=== PATIENT | female | born 1930 | race Caucasian/White ===

== ENCOUNTER 2017-05-18 11:07 | Outpatient (CLI) | payer MEDICARE, BC ==
[~2017-05-18 11:07] MED LIST: LEVO50TA PO
== END 2017-05-18 23:59 | disposition home or self-care (01) ==
LOC: RAD 11:07
DX: S82.401D Unspecified fracture of shaft of right fibula, subsequent encounter for closed fracture with routine healing (principal); M16.0 Bilateral primary osteoarthritis of hip; M19.012 Primary osteoarthritis, left shoulder; M85.88 Other specified disorders of bone density and structure, other site; M47.896 Other spondylosis, lumbar region; X58.XXXD Exposure to other specified factors, subsequent encounter
CPT/HCPCS: 73030-TC; 73502; 73610-TC